=== PATIENT | male | born 1980 | race Caucasian/White ===

== ENCOUNTER → 2018-10-24 17:12 | Outpatient (CLI) | payer OTHER, SELFPAY ==
[2018-10-24 18:25] LABS: Eosinophils # 0.2 K/mm3 (0.0-0.4); Mean Corpuscular HGB Conc 32.8 g/dL (31.8-35.4); Monocytes # 0.5 K/mm3 (0.1-1.0); Neutrophils # 4.2 K/mm3 (1.8-7.8)
[2018-10-24 18:31] LABS: Basophils # 0.1 K/mm3 (0-0.2); Basophils % 0.7 % (0.1-2.0); Eosinophils % 2.7 % (0.1-12.0); Hematocrit 55.3 % (42.0-52.0); Lymphocytes # 1.7 K/mm3 (0.7-4.5); Lymphocytes % 26.3 % (10-50); Mean Corpuscular Hemoglobin 31.2 pg (27.0-31.2); Mean Corpuscular Volume 95.2 fl (80-94); Monocytes % 7.4 % (1.7-9.3); Neutrophils % 62.9 % (37.0-80.0); Platelet Count 226 K/mm3 (142-424); Red Blood Count 5.81 M/mm3 (4.60-6.20); Red Cell Distribution Width 13.2 % (11.5-17.5); White Blood Count 6.6 K/mm3 (4.8-10.8)
[2018-10-24 18:32] LABS: Hemoglobin 18.1 g/dL (14.1-18.0)
[2018-10-24 18:53] LABS: Alanine Aminotransferase 59 U/L (12-78); Albumin Level 3.7 gm/dL (3.4-5.0); Albumin/Globulin Ratio 1.2 (1.1-1.8); Alkaline Phosphatase 83 U/L (46-116); Anion Gap 14.1 mEq/L (5-15); Aspartate Amino Transferase 15 U/L (15-37); Bilirubin,Total 0.5 mg/dL (0.2-1.0); Blood Urea Nitrogen 15 mg/dL (7-18); Calcium 9.2 mg/dL (8.5-10.1); Carbon Dioxide 26 mmol/L (21.0-32.0); Chloride 105 mmol/L (98-107); Chol/HDL Ratio 5.8 (1-3.5); Cholesterol 216 mg/dL (140-200); Creatinine,Serum 1.02 mg/dL (0.70-1.30); Estimated Glomerular Filt Rate 81 ml/min (>60); GFR (African American) 98 ML/MIN (>60); Globulin 3.2 gm/dl (1.3-3.2); Glucose 108 mg/dL (74-106); HDL Cholesterol 37 mg/dL (27-67); LDL Cholesterol 104 mg/dL (0-130); Potassium 4.1 mmoL/L (3.5-5.1); Sodium 141 mmol/L (136-145); T4 (Thyroxine) 7.2 ug/dl (4.7-13.3); Thyroid Stimulating Hormone 0.99 uIU/ml (0.358-3.740); Total Protein,Serum 6.9 gm/dL (6.4-8.2); Triglycerides 376 mg/dL (30-200); VLDL Cholesterol 75 mg/dL (0-40)
[2018-10-27 10:26] LABS: Vitamin D 25 Hydroxy 22.7 ng/mL (30.0-100.0)
== END ==
PROVIDERS: Visit Provider Nurse Practitioner Family
DX: I10 Essential (primary) hypertension (principal); Z76.89 Persons encountering health services in other specified circumstances; E55.9 Vitamin D deficiency, unspecified
CPT/HCPCS: 80053; 80061; 82652; 84436; 84443; 85025

== ENCOUNTER → 2019-01-12 10:59 | Outpatient (POV) | payer OTHER, SELFPAY | PROVIDERS: Visit Provider Specialist | DX: M79.601 Pain in right arm (principal); M79.602 Pain in left arm; R20.2 Paresthesia of skin; R20.0 Anesthesia of skin ==

== ENCOUNTER → 2019-05-14 20:13 | Outpatient (CLI) | payer OTHER, SELFPAY | PROVIDERS: PCP Emergency Medicine; Visit Provider Nurse Practitioner Family | DX: G47.33 Obstructive sleep apnea (adult) (pediatric) (principal); I10 Essential (primary) hypertension; R40.0 Somnolence; R06.83 Snoring | CPT/HCPCS: 95810 ==

== ENCOUNTER 2019-12-10 19:27 | Emergency (ER) | payer OTHER, SELFPAY ==
[2019-12-10 19:38] VITALS: BMI 41.8
--- NOTE | 2019-12-10 19:39 | XR_ITS ---
PROCEDURE: XR KNEE LT 3V CLINICAL INDICATION: PAIN/SWELLING COMPARISON: No exams were available for comparison FINDINGS: There is mild joint space narrowing laterally. There is minor calcification of the medial and lateral meniscus. There is minor spurring of the tibial spines. There is mild narrowing of the patellofemoral space and there is a bipartite patella noted. There is no definite effusion. Other findings:None. 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 Evan Armstrong MD 12/11/2019 08:41 Dr. Evan Armstrong MD in [place] 12/11/2019 08:41
[2019-12-10 19:42] VITALS: BP 152/114; PULSE 86; RESP 20; TEMP 37; O2SAT 99; BMI 41.8
--- NOTE | 2019-12-10 19:55 | HMH.EDUTC ---
[facility] [place] Disposition Clinical Impression: Effusion, left knee Left knee pain Qualifiers: Chronicity: acute Qualified Code(s): M25.562 - Pain in left knee Disposition: Home, Self-Care Condition on Discharge: Good Instructions: How to Use Crutches, DI for Knee Effusion, DI for Knee Pain, How to Use a Knee Immobilizer Additional Instructions: Rest the extremity, apply ice for 15 minutes as tolerated three or four times per day, Wear the stephane wrap for compression, Elevate the extremity as tolerated while you are resting. Take ibuprofen for pain. Follow up with Dr. Martinez (orthopedics)if you continue to have issues with the knee. I put in a referral but you need to call her office and schedule an appointment. Follow up with your regular doctor. GO TO THE ER FOR ANY WORSENING SYMPTOMS Prescriptions: methylPREDNISolone [Medrol] 4 mg PO DIRECTED 6 Days #21 tab.[email or web address] Transmission Status: Received by [id number] Referrals: Gume Doyle APRN [Primary Care Provider] - Mary Martinez MD [Physician] - Time of Disposition: 20:07 Medical Decision Making - Medical Records Medical records reviewed: No: I reviewed the patient's medical records. - Chance Inquiry Pt receiving controlled substance: No Vital Signs: 12/10/19 19:42 12/10/19 20:11 Temperature 98.6 F 98.6 F Temperature Source Oral Pulse Rate 86 Pulse Rate [Right Brachial] 86 Respiratory Rate 20 20 Blood Pressure 152/144 H Blood Pressure [Right Arm] 152/114 H Blood Pressure Mean [Right Arm] 126 Blood Pressure Source [Right Arm] Automatic Cuff Blood Pressure Position [Right Arm] Sitting 02 Sat by Pulse Oximetry 99 Oxygen Delivery Method Room Air - Radiology Data #1 Image(s): Knee Image Reviewed: Yes I reviewed the patient's radiology image, Yes I have reviewed radiologist's interpretation Preliminary Findings: No Fracture Seen PROCEDURE: XR KNEE LT 3V CLINICAL INDICATION: PAIN/SWELLING COMPARISON: No exams were available for comparison FINDINGS: There is mild joint space narrowing laterally. There is minor calcification of the medial and lateral meniscus. There is minor spurring of the tibial spines. There is mild narrowing of the patellofemoral space and there is a bipartite patella noted. There is no definite effusion. Other findings:None. 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 Evan Armstrong MD 12/11/2019 08:41 Dr. Evan Armstrong MD in [place] 12/11/2019 08:41 [facility] [place] HPI - General Stated complaint: Lef knee pain, no accident Time Seen by Provider: 12/10/19 19:55 Mode of Arrival: Ambulatory Source of Information: Patient Limitations: No Limitations Description of Symptoms (Recalled from Triage Doc. by RN): PATIENT C/O LEFT KNEE PAIN AND SWELLING SINCE YESTERDAY. NO KNOWN INJURY. HE REPORTS HE HAD THE SAME PROBLEM A FEW WEEKS AGO BUT IT RESOLVED AND STARTED AGAIN YESTERDAY HEENT Symptoms (Recalled from RN notes): No Resp Symptoms (Recalled from RN notes): No Skin Symptoms (Recalled from RN notes): No MS Symptoms (Recalled from RN notes): Yes Functional Status (Recalled from RN notes): WNL - History of Present Illness Provider Complaint: He c/o left knee pain for the past 2 days. He denies any injury. He denies that he has been using the leg or knee more than in the past. His knee did swell up like this about 3 weeks ago, but it got better on its own very quickly. - Related Data Previous Rx's Medication Instructions Recorded methylPREDNISolone [Medrol] 4 mg PO DIRECTED 6 Days #21 12/10/19 tab.[email or web address] Allergies Allergy/AdvReac Type Severity Reaction Status Date / Time No Known Allergies Allergy Verified 12/10/19 19:47 - Worker's Comp Is this a Worker's Comp case?: No [facility] History - Hepatitis A Screen Drug use history?: No High risk sexual behaviors?: No History of sexually transmitted infection?: No Curr
[2019-12-10 20:11] VITALS: BP 152/144; PULSE 86; RESP 20; TEMP 37; O2SAT 99
== END 2019-12-10 20:17 | disposition home or self-care (01) ==
PROVIDERS: Emergency Provider Nurse Practitioner Family; PCP Nurse Practitioner Family
DX: M25.562 Pain in left knee (principal); M25.462 Effusion, left knee; I10 Essential (primary) hypertension; E78.5 Hyperlipidemia, unspecified; J45.909 Unspecified asthma, uncomplicated; F17.210 Nicotine dependence, cigarettes, uncomplicated; Z79.899 Other long term (current) drug therapy
CPT/HCPCS: 29505; 73562; 99202

== ENCOUNTER 2020-03-17 14:20 | Emergency (ER) | payer OTHER, SELFPAY ==
[2020-03-17 14:21] VITALS: BP 197/112; PULSE 100; RESP 16; TEMP 36.5; O2SAT 98; BMI 41.0
--- NOTE | 2020-03-17 14:45 | HMH.EDUTC ---
[facility] [place] Disposition Clinical Impression: Cellulitis of left lower leg Disposition: Home, Self-Care Condition on Discharge: Good Instructions: Cellulitis Additional Instructions: Take the medications as directed. Follow up with your primary care physician (). Return and go to the ER for any worsening symptoms (FEVER, CHILLS, WORSENING REDNESS, SWELLING, ETC). You can get very sick with cellulitis. GO TO THE ER FOR ANY WORSENING SYMPTOMS OR CONCERNS Prescriptions: Sulfamethoxazole/Trimethoprim [Bactrim DS tablet] 1 each PO BID 10 Days #20 tab Transmission Status: Received by [id number] Mupirocin [Bactroban 2% Ointment 22gm tube] 1 applicatio TP TID 7 Days #1 tube Transmission Status: Received by [id number] cephALEXin [Keflex 500mg Cap] 500 mg PO Q6H 10 Days #40 cap Transmission Status: Received by [id number] Referrals: Dominic Boo MD [Primary Care Provider] - Forms: Work/School Release Time of Disposition: 14:57 Medical Decision Making - Medical Records Medical records reviewed: No: I reviewed the patient's medical records. - Chance Inquiry Pt receiving controlled substance: No Vital Signs: 03/17/20 14:21 03/17/20 14:58 Temperature 97.7 F 97.7 F Temperature Source Oral Oral Pulse Rate 100 H Pulse Rate [Right] 100 H Respiratory Rate 16 16 Blood Pressure 197/112 H Blood Pressure [Right Arm] 197/112 H Blood Pressure Mean [Right Arm] 140 02 Sat by Pulse Oximetry 98 Oxygen Delivery Method Room Air [facility] [place] HPI - General Stated complaint: Left leg pain Time Seen by Provider: 03/17/20 14:45 Mode of Arrival: Ambulatory Description of Symptoms (Recalled from Triage Doc. by RN): pt c/o of lt leg pain , redness, warmth note to lt hess. pt has hx of cellulitis HEENT Symptoms (Recalled from RN notes): No Resp Symptoms (Recalled from RN notes): No Skin Symptoms (Recalled from RN notes): Yes MS Symptoms (Recalled from RN notes): No Functional Status (Recalled from RN notes): wnl - History of Present Illness Provider Complaint: He has redness of the front of his left lower leg. He states that his symptoms began 2 days ago. He denies any injury. He has had similar symptoms once before in the same location of his leg and he was diagnosed with cellulitis then. He states that he got better with antibiotics then. He denies being diabetic. - Related Data Previous Rx's Medication Instructions Recorded methylPREDNISolone [Medrol] 4 mg PO DIRECTED 6 Days #21 12/10/19 tab.ds.pk Mupirocin [Bactroban 2% Ointment 1 applicatio TP TID 7 Days #1 tube 03/17/20 22gm tube] Sulfamethoxazole/Trimethoprim 1 each PO BID 10 Days #20 tab 03/17/20 [Bactrim DS tablet] cephALEXin [Keflex 500mg Cap] 500 mg PO Q6H 10 Days #40 cap 03/17/20 Allergies Allergy/AdvReac Type Severity Reaction Status Date / Time No Known Allergies Allergy Verified 12/10/19 19:47 - Worker's Comp Is this a Worker's Comp case?: No Is this an H Worker's Comp?: No Is this a [place] Worker's Comp?: No [facility] History - Hepatitis A Screen Drug use history?: No High risk sexual behaviors?: No History of sexually transmitted infection?: No Currently employed?: No Childcare worker?: No Do you have indoor plumbing?: Yes Do you have electricity?: Yes Attestation statement:: This patient has been screened for Hepatitis A risk factors. I have reviewed the patient's past medical history: Yes Medical History: Reports:: Asthma, Hyperlipidemia, Hypertension Comment: vitamin d def Laterality Cases: Bilateral: Tonsillectomy Other Surgeries: Yes: No Previous Surgery, Hernia Repair, Other Amputation: No Fractures: No Comment: cyst removed from back - Social History Smoking Status: Current every day smoker Tobacco Type: cigarettes # Packs/Day (cigarettes): 1 Alcohol Intake: never Alcohol Intake Frequency:: holidays/special occasions only Substance Use Type: odessa
[2020-03-17 14:58] VITALS: BP 197/112; PULSE 100; RESP 16; TEMP 36.5; O2SAT 98
== END 2020-03-17 15:00 | disposition home or self-care (01) ==
PROVIDERS: Emergency Provider Nurse Practitioner Family; PCP Emergency Medicine
DX: L03.116 Cellulitis of left lower limb (principal); I10 Essential (primary) hypertension; E78.5 Hyperlipidemia, unspecified; J45.909 Unspecified asthma, uncomplicated; F17.210 Nicotine dependence, cigarettes, uncomplicated; Z79.899 Other long term (current) drug therapy
CPT/HCPCS: 99202; G0463